=== PATIENT | female | born 1945 | race Caucasian/White ===

== ENCOUNTER 2017-07-03 01:11 | Emergency (ER) | payer MEDICARE, OTHER ==
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
== END 2017-07-03 02:40 | disposition home or self-care (01) ==
LOC: ERS 01:11
DX: M25.551 Pain in right hip (principal); I10 Essential (primary) hypertension; K21.9 Gastro-esophageal reflux disease without esophagitis; F17.210 Nicotine dependence, cigarettes, uncomplicated; W19.XXXA Unspecified fall, initial encounter
CPT/HCPCS: 72170; 99406

== ENCOUNTER 2019-06-12 12:31 | Emergency (ER) | payer MEDICARE, OTHER ==
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
[2019-06-12 14:18] LABS: #Basophils 0.1 thou/uL (0.0-0.2); #Lymphocytes 1.4 thou/uL (1.20-3.40); #Monocytes 0.9 thou/uL (0.11-0.59); #Neutrophils 5.5 thou/uL (1.40-6.50); %Basophils 1.1 % (0.0-1.0); %Eosinophils 0.4 % (0.0-10.0); %Lymphocytes 17.8 % (21.0-51.0); %Monocytes 11.4 % (0.0-10.0); %Neutrophils 69.3 % (42.0-75.0); Hemoglobin 13.5 g/dL (12.0-16.0); Mean Corpuscular Hemoglobin 33.7 pg (27.0-31.0); Mean Platelet Volume 9.3 fL (7.4-10.4); Platelet Count 179 thou/uL (130-400); RBC Distribution Width 15.8 % (11.5-14.5); White Blood Cell (WBC) Count 7.9 thou/uL (4.8-10.8)
[2019-06-12 14:35] LABS: ALT (SGPT) 19 U/L (8-55); AST (SGOT) 45 U/L (5-34); Albumin 2.7 g/dL (3.4-4.8); Alkaline Phosphatase 114 U/L (40-110); Anion Gap 9 mmol/L (10-20); BUN (Urea Nitrogen) 16 mg/dL (9.8-20.1); Bilirubin, Total 1.5 mg/dL (0.2-1.2); CK (CPK) 105 U/L (29-168); Calc. Creatinine Clearance 0 mL/min (70-130); Calcium 6.4 mg/dL (7.8-10.44); Carbon Dioxide 34 mmol/L (23-31); Chloride 96 mmol/L (98-107); Estimated GFR-MDRD 85; Globulin 2.9 g/dL (2.4-3.5); Glucose 82 mg/dL (83-110); Potassium 3.2 mmol/L (3.5-5.1); Protein, Total 5.6 g/dL (6.0-8.3); Sodium 136 mmol/L (136-145)
[2019-06-12 14:49] LABS: Bacteria/HPF 4+ HPF (None Seen); Bilirubin 1+ (Negative); Blood, Urine 1+ (Negative); Clarity Extra Turbid (Clear); Glucose, Urine (Dipstick) Normal (Negative); Leukocyte 500 Leu/uL (Negative); Nitrite Negative (Negative); Protein, Urine (Dipstick) 100 mg/dL (Neg-Trace); RBC/HPF 0-3 HPF (0-3); Renal Epithelial 0-3 HPF (None Seen); WBC/HPF Greater than 50 HPF (0-3)
[2019-06-12] MEDS ORDERED: Iopamidol 370 76% 100 ML VIAL ONE (15:16)
--- NOTE | 2019-06-12 15:54 | CT ---
CT PULMONARY ANGIOGRAM WITH IV CONTRAST AND 3D POSTPROCESSING: HISTORY: Dyspnea. FINDINGS: The pulmonary arterial vasculature is well opacified without filling defect to suggest pulmonary embo lism. The thoracic aorta is well opacified without aneurysm or dissection. No pericardial or right pleural effusion is seen. There is a small left pleural effusion. There is a mild infiltrate with a telectatic change at the right lung base. There is elevation of the right hemidiaphragm. Emphysemat ous changes are present in the lung fuentes bilaterally. There is a soft tissue density along the rig ht lateral wall of the trachea at the level of the thoracic inlet. This may either be due to a mass or mucus. Endoscopic evaluation would be helpful. There are degenerative changes in the spine. There is compression of multiple thoracic vertebral bod ies. IMPRESSION: No CT evidence of pulmonary embolism. Please see above. POS: [facility]
== END 2019-06-12 20:37 ==
LOC: ERS 12:31
DX: N39.0 Urinary tract infection, site not specified (principal); B37.9 Candidiasis, unspecified; I10 Essential (primary) hypertension; K21.9 Gastro-esophageal reflux disease without esophagitis; F17.210 Nicotine dependence, cigarettes, uncomplicated
CPT/HCPCS: 36415; 51701; 71045; 71275; 80053; 81003; 81015; 82550; 83605; 85025; 87040; 87070; 87205; 93005; 94760; 96360; 96361; A4353; Q9967